=== PATIENT | male | born 1950 | race Caucasian/White ===

== ENCOUNTER 2018-08-19 05:32 | Day surgery (SDC) | payer OTHER ==
[~2018-08-19] VITALS: Ht 180.3 cm; Wt 106.6 kg
[~2018-08-19 05:32] MED LIST: ADVAIR 500-501 EACH INH; COZAAR 50 MG TA50 M1 PO; HYDROCODONE-IB1 EAC3 PO; IBUPROFEN 400400 M2 PO; INCRUSE ELLI62.5 MCG INH; IPRAT-ALBUT 0.5-3 ML INH; PROAIR HFA8.5 GM INH; SOTALOL 120 MG120 M1 PO
[2018-08-19 07:47] VITALS: BP 118/74
== END 2018-08-19 10:05 | disposition home or self-care (01) ==
LOC: OR 05:32 → TBA 05:32 → OR 10:05
DX: M48.061 Spinal stenosis, lumbar region without neurogenic claudication (principal); M96.1 Postlaminectomy syndrome, not elsewhere classified; M47.816 Spondylosis without myelopathy or radiculopathy, lumbar region; I10 Essential (primary) hypertension; I48.91 Unspecified atrial fibrillation; F41.9 Anxiety disorder, unspecified; J43.9 Emphysema, unspecified; Z90.49 Acquired absence of other specified parts of digestive tract; Z98.890 Other specified postprocedural states; Z79.01 Long term (current) use of anticoagulants; Z79.899 Other long term (current) drug therapy; Z87.891 Personal history of nicotine dependence
CPT/HCPCS: 50010; 50101; 50386; 50417; 54118; 56524; 56526; 56528; 57196; 57197; 57198; 57199; 57200; 57201; 62110; 62900; 70005